=== PATIENT | male | born 2000 | race Caucasian/White ===

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

== ENCOUNTER 2021-01-19 12:11 | Emergency (ER) | payer OTHER, MEDICAID ==
[2021-01-19 12:25] VITALS: BP 114/57
[2021-01-19 12:39] LABS: RAPID STREP SCREEN Negative (Negative)
--- NOTE | 2021-01-19 12:39 | ED Physician Documentation ---
PD HPI HEENT - Stated complaint Stated Complaint: SORE THROAT - Chief complaint Chief Complaint: Heent - History obtained from History obtained from: Patient - History of Present Illness Timing - onset: How many days ago (3) Timing - duration: Days (3) Timing - details: Gradual onset, Still present Location: Sinuses, Throat Worsens: [place], Position (frontal sinus pressure with head down and changing position) Associated symptoms: Congestion, Headache (frontal and behind eyes). No: Fever, Facial swelling, Cough Similar symptoms before: Has not had sx before Recently seen: Not recently seen Review of Systems Constitutional: denies: Fever, Chills, Myalgias Ears: denies: Ear pain, Drainage/discharge Nose: reports: Rhinorrhea / runny nose, Congestion, Sinus pressure / pain Throat: reports: Sore throat Cardiac: denies: Chest pain / pressure Respiratory: denies: Dyspnea, Cough GI: denies: Nausea, Vomiting Neurologic: denies: Headache (just frontal sinus area) PD PAST MEDICAL HISTORY - Past Medical History Cardiovascular: None Respiratory: None Neuro: None Endocrine/Autoimmune: None - Present Medications Home Medications: Ambulatory Orders Medication Instructions Recorded Confirmed Amoxicillin 500 mg PO TID 6 Days #18 cap 01/19/21 Cetirizine [ZyrTEC] 10 mg PO BID #15 tablet 01/19/21 dexAMETHasone [Decadron] 4 mg PO DAILY #5 tablet 01/19/21 - Allergies Allergies/Adverse Reactions: Allergies Allergy/AdvReac Type Severity Reaction Status Date / Time No Known Drug Allergies Allergy Verified 01/19/21 12:22 - Social History Does the pt smoke?: No Smoking Status: Never smoker PD ED PE NORMAL - Vitals Vital signs reviewed: Yes - General General: Alert and oriented X 3, No acute distress, Well developed/nourished - HEENT HEENT: Ears normal, Moist mucous membranes, Pharynx benign - Neck Neck: Supple, no meningeal sign, No adenopathy - Cardiac Cardiac: RRR, No murmur - Respiratory Respiratory: Clear bilaterally - Derm Derm: Normal color, Warm and dry, No rash Results - Vitals Vitals: Oxygen O2 Source Room air - Labs Labs: Microbiology 01/19/21 12:25 Group A Strep Throat Culture - Final Throat MIXED OROPHARYNGEAL RENE PRESENT. NO BETA STREP PRESENT IN CULTURE. Laboratory Tests 01/19/21 01/19/21 12:25 13:10 Coronavirus (PCR) NEGATIVE Group A Strep Rapid Negative PD MEDICAL DECISION MAKING - ED course Complexity details: considered differential (consider URI but really sounds localized to sinus inflammation and drainage c/w sinusitis. ), d/w patient Departure - Departure Disposition: 01 Home, Self Care Clinical Impression: Sinusitis, acute Qualifiers: Sinusitis location: unspecified location Recurrence: non-recurrent Qualified Code(s): J01.90 - Acute sinusitis, unspecified Condition: Stable Record reviewed to determine appropriate education?: Yes Instructions: ED Sinusitis Abx Tx Prescriptions: Amoxicillin 500 mg PO TID 6 Days #18 cap dexAMETHasone [Decadron] 4 mg PO DAILY #5 tablet Cetirizine [ZyrTEC] 10 mg PO BID #15 tablet Comments: Your strep test is negative. The Covid test should result likely tomorrow. You can find the results on the patient portal. Your symptoms sound more like a sinus infection rather than a head cold per se. We will treated as such with antihistamines, steroid anti-inflammatory and antibiotic. I would anticipate improvement over the next few days. Tylenol or ibuprofen if needed for pains. You could use some saline nasal spray periodically to help clear the nasal passages well. You have a Covid test pending. You need to self quarantine until the result is done and negative. Do not leave your house. Do not get near anybody. The results should be done in 48 to 72 hours, but sometimes longer. We will call with a positive result, the fastest way to get a negative result for confirmation though is to go to the hospital website at [email or web address], click on the my [facility] tab and sign up for the patient portal. If any friends or family get sick and would like to have a Covid test done, but do not have signs or symptoms that would necessitate being hospitalized, we encourage testing through our coronavirus swabbing station, call [phone] to schedule an appointment. Discharge Date/Time: 01/19/21 13:26
[2021-01-19] MEDS ORDERED: CETIRIZINE 10 MG TABLET PO STA (13:02)
[2021-01-19] MEDS ORDERED: DEXAMETHASONE 10 MG/ML VIAL PO STA (13:02)
[2021-01-19] MEDS ORDERED: CHERRY SYRUP 10 ML UDC PO ONE (13:02)
[2021-01-19] MEDS ORDERED: AMOXICILLIN 250 MG CAPSULE PO STA (13:02)
== END 2021-01-19 13:26 | disposition home or self-care (01) ==
LOC: ED 12:11
DX: J01.90 Acute sinusitis, unspecified (principal); Z20.822 Contact with and (suspected) exposure to COVID-19
CPT/HCPCS: 87070; 87430; 87635; 99283; A9270

== ENCOUNTER 2021-12-22 17:47 | Outpatient (CLI) | payer OTHER, MEDICAID ==
--- NOTE | 2021-12-23 16:05 | XRAY Report ---
PROCEDURE: Finger(s) RT INDICATIONS: RIGHT MIDDLE FINGER INJ TECHNIQUE: AP hand, 3 views of the third finger(s) acquired. COMPARISON: X-ray wrist 12/20/2019 FINDINGS: Bones: No fractures or dislocations. No suspicious bony lesions. Soft tissues: No suspicious soft tissue calcifications. IMPRESSION: No visualized acute fracture or dislocation. However, occult injury cannot be excluded. Recommend eliana rt interval imaging follow-up in 7-10 days as clinically indicated for additional evaluation. Reviewed by: Anne Mensah MD on 12/23/2021 4:04 PM PDT Approved by: Anne Mensah MD on 12/23/2021 4:04 PM PDT Station ID: [id number]
== END 2021-12-22 23:59 | disposition home or self-care (01) ==
LOC: DI.N 17:47
PROVIDERS: ATTEND Nurse Practitioner
DX: S67.192A Crushing injury of right middle finger, initial encounter (principal)

== ENCOUNTER 2022-06-13 12:04 | Emergency (ER) | payer OTHER, MEDICAID ==
[2022-06-13 12:35] LABS: BASOPHILS % (AUTO) 0.3 %; EOSINOPHILS % (AUTO) 0.2 %; HGB - HEMOGLOBIN 16.1 g/dL (14.0-18.0); LYMPHOCYTES # (AUTO) 1.3 10^3/uL (1.5-3.5); LYMPHOCYTES % (AUTO) 20.1 %; MEAN CORPUSCULAR HEMOGLOBIN 31.9 pg (27.0-31.0); MEAN CORPUSCULAR VOLUME 91.1 fL (80.0-94.0); MEAN PLATELET VOLUME 9.8 fL (7.4-11.4); MONOCYTES # (AUTO) 0.7 10^3/uL (0.0-1.0); MONOCYTES % (AUTO) 10.1 %; NEUTROPHILS # (AUTO) 4.4 10^3/uL (1.5-6.6); NEUTROPHILS % (AUTO) 69.1 %; PLT - PLATELET COUNT 315 10^3/uL (130-450); RED BLOOD COUNT 5.05 10^6/uL (4.70-6.10); RED CELL DISTRIBUTION WIDTH 11.1 % (12.0-15.0); WHITE BLOOD COUNT 6.4 x10^3/uL (4.8-10.8)
[2022-06-13 12:49] LABS: ALBUMIN 4.9 g/dL (3.2-5.5); ALBUMIN/GLOBULIN RATIO 1.3 (1.0-2.2); BILIRUBIN,TOTAL 1.3 mg/dL (0.2-1.0); CALCIUM 10.1 mg/dL (8.5-10.3); CREATININE 1.1 mg/dL (0.6-1.2); TOTAL PROTEIN 8.7 g/dL (6.7-8.2)
--- NOTE | 2022-06-13 15:08 | ED Physician Documentation ---
PD HPI NVD - Stated complaint Stated Complaint: CHILLS/VOMITING - Chief complaint Chief Complaint: Abd Pain - History obtained from History obtained from: Patient - History of Present Illness Timing - onset: Yesterday Timing - duration: Days (2) Timing - details: Abrupt onset, Still present Associated symptoms: Fever (subjective), Abdominal pain (cramping mid to diffuse.), Loss of appetite, Other (multiple episodes of vomiting to point of dry heaving. having abd cramping develop after.). No: Near syncope / syncope Contributing factors: No: Sick contact, Bad food, Recent antibiotics Improved by: No: Vomiting Worsened by: Eating Similar symptoms before: Has not had sx before Recently seen: Not recently seen Review of Systems Constitutional: reports: Chills, Myalgias Nose: denies: Rhinorrhea / runny nose, Congestion Throat: denies: Sore throat Cardiac: denies: Chest pain / pressure Respiratory: reports: Cough. denies: Dyspnea GI: reports: Abdominal Pain, Nausea, Vomiting. denies: Abdominal Swelling, Diarrhea : denies: Dysuria, Frequency Skin: denies: Rash, Lesions Neurologic: denies: Altered mental status, Headache PD PAST MEDICAL HISTORY - Past Medical History Cardiovascular: None Respiratory: None Neuro: None Endocrine/Autoimmune: None - Present Medications Home Medications: Ambulatory Orders Medication Instructions Recorded Confirmed Amoxicillin 500 mg PO TID 6 Days #18 cap 01/19/21 Cetirizine [ZyrTEC] 10 mg PO BID #15 tablet 01/19/21 dexAMETHasone [Decadron] 4 mg PO DAILY #5 tablet 01/19/21 Ondansetron Odt [Zofran] 4 mg TL Q6H PRN #10 tablet 06/13/22 Promethazine [Phenergan] 25 mg PO Q6H PRN #10 tab 06/13/22 - Allergies Allergies/Adverse Reactions: Allergies Allergy/AdvReac Type Severity Reaction Status Date / Time No Known Drug Allergies Allergy Verified 06/13/22 12:20 - Social History Does the pt smoke?: No Smoking Status: Never smoker PD ED PE NORMAL - Vitals Vital signs reviewed: Yes - General General: Alert and oriented X 3, No acute distress (seems uncomfortable due to nausea currently, but not in pain right now. ), Well developed/nourished - HEENT HEENT: Ears normal, Pharynx benign. No: Moist mucous membranes - Neck Neck: Supple, no meningeal sign, No adenopathy - Cardiac Cardiac: RRR, No murmur - Respiratory Respiratory: Clear bilaterally - Abdomen Abdomen: Normal bowel sounds, Soft, Non distended, No organomegaly, Other (tender mildly diffusely without focal guarding, nor percussion/rebound tenderness. no rash nor sores. umbilical area without hernias. ) Results - Vitals Vitals: Vital Signs - 24 hr 06/13/22 06/13/22 12:17 17:42 Temperature 37.2 C Heart Rate 73 66 Respiratory 18 18 Rate Blood Pressure 131/77 H 110/75 O2 Saturation 100 99 Oxygen O2 Source Room air - Labs Labs: Laboratory Tests 06/13/22 06/13/22 06/13/22 12:30 12:30 14:48 WBC 6.4 RBC 5.05 Hgb 16.1 Hct 46.0 MCV 91.1 MCH 31.9 H MCHC 35.0 RDW 11.1 L Plt Count 315 MPV 9.8 Neut # (Auto) 4.4 Lymph # (Auto) 1.3 L [place] # (Auto) 0.7 Eos # (Auto) 0.0 Baso # (Auto) 0.0 Absolute Nucleated RBC 0.00 Nucleated RBC % 0.0 Sodium 140 Potassium 4.0 Chloride 102 Carbon Dioxide 24 Anion Gap 14.0 H BUN 17 Creatinine 1.1 Estimated GFR (MDRD) 85 L Glucose 110 H Calcium 10.1 Total Bilirubin 1.3 H AST 19 ALT 14 Alkaline Phosphatase 69 Total Protein 8.7 H Albumin 4.9 Globulin 3.8 Albumin/Globulin Ratio 1.3 Lipase 25 Influenza A (Rapid) Negative Influenza B (Rapid) Negative PD MEDICAL DECISION MAKING - ED course Complexity details: re-evaluated patient (feeling greatly better with iv fluids and meds. Recheck abd not tender. he is able to take po liquids now. ), considered differential (not particular focal tenderness on abd exam. has had multiple vomiting since yesterday. no diarrhea though. still seems likely viral ge. no suspect foods, per patient. ), d/w patient Departure - Departure Disposition: 01 Home, Self Care Clinical Impression: Dehydration, Gastroenteritis Nausea and vomiting Qualifiers: Vomiting type: unspecified Qualified Code(s): R11.2 - Nausea with vomiting, unspecified Condition: Stable Record reviewed to determine appropriate education?: Yes Instructions: ED Nausea Vomiting Prescriptions: Promethazine [Phenergan] 25 mg PO Q6H PRN #10 tab PRN Reason: Nausea / Vomiting Ondansetron Odt [Zofran] 4 mg TL Q6H PRN #10 tablet PRN Reason: Nausea / Vomiting Comments: This sounds likely to be a viral type illness with the nausea and vomiting and cramps. I have a low suspicion for more localized infection such as appendix or so. He did seem dehydrated. It is good that you are feeling better with a few fluids and some of the medicines. Hopefully we can maintain that now with some antinausea medications and maintaining hydration and use of Tylenol or ibuprofen type medicines. Ondansetron or promethazine every 6 hours if needed for nausea. Small frequent fluids. I would anticipate him continued symptoms for another couple of days likely. However hopefully not as much as you have had last 2 days. I sent your prescriptions to [facility] pharmacy for antinausea medicines. Recheck if not improved well over the next several days and resolved by 3 to 4 days. Return if worse. Discharge Date/Time: 06/13/22 17:44
[2022-06-13] MEDS ORDERED: KETOROLAC 15 MG/ML VIAL IVP STA (15:31)
[2022-06-13] MEDS ORDERED: DROPERIDOL 5 MG/2 ML VIAL IVP STA (15:31)
[2022-06-13] MEDS ORDERED: SODIUM CHLORIDE 0.9% 1,000 ML IV STA ×2 (15:31)
[2022-06-13] MEDS ORDERED: FAMOTIDINE 20 MG/2 ML VIAL IVP STA (15:31)
[2022-06-13 17:43] VITALS: BP 110/75
== END 2022-06-13 17:44 | disposition home or self-care (01) ==
LOC: ED 12:04
DX: K52.9 Noninfective gastroenteritis and colitis, unspecified (principal); E86.0 Dehydration
CPT/HCPCS: 36415; 80053; 83690; 85025; 87275; 87276; 96361; 96374; 96375; 99284

== ENCOUNTER 2022-08-26 13:31 | Emergency (ER) | payer OTHER, MEDICAID ==
[2022-08-26] MEDS ORDERED: KETOROLAC 15 MG/ML VIAL IVP STA (13:51)
[2022-08-26] MEDS ORDERED: PROMETHAZINE INJ 25 MG in SODIUM CHLORIDE 0.9% 50 ML IV STA (13:51)
[2022-08-26] MEDS ORDERED: SODIUM CHLORIDE 0.9% 1,000 ML IV STA (13:51)
[2022-08-26] MEDS ORDERED: LOPERAMIDE 2 MG CAPSULE PO STA (13:51)
--- NOTE | 2022-08-26 13:52 | ED Physician Documentation ---
PD HPI NVD - Stated complaint Stated Complaint: NAUSEA/VOMITING - Chief complaint Chief Complaint: Abd Pain - History obtained from History obtained from: Patient - Additonal information Additional information: Otherwise healthy 22-year-old gentleman who does smoke cannabis frequently but he says not daily presents with vomiting starting yesterday. He started vomiting and then developed epigastric pain later. It is associate with diarrhea. No fevers or sick contacts. He took an ondansetron yesterday which was helpful. PD PAST MEDICAL HISTORY - Past Medical History Cardiovascular: None Respiratory: None Neuro: None Endocrine/Autoimmune: None - Present Medications Home Medications: Ambulatory Orders Medication Instructions Recorded Confirmed Ondansetron Odt [Zofran] 4 mg TL Q6H PRN #10 tablet 06/13/22 08/26/22 Loperamide [Imodium] 2 mg PO QID PRN #10 cap 08/26/22 Ondansetron Odt [Zofran] 4 mg TL Q6H PRN #10 tablet 08/26/22 Promethazine [Phenergan] 25 mg PO Q6H PRN #10 tab 08/26/22 - Allergies Allergies/Adverse Reactions: Allergies Allergy/AdvReac Type Severity Reaction Status Date / Time No Known Drug Allergies Allergy Verified 08/26/22 13:43 - Social History Does the pt smoke?: No Smoking Status: Never smoker Does the pt drink ETOH?: Yes Does the pt have substance abuse?: No - Immunizations Immunizations are current?: Yes - POLST Patient has POLST: No PD ED PE NORMAL - Vitals Vital signs reviewed: Yes - General General: Alert and oriented X 3, No acute distress - Cardiac Cardiac: RRR, No murmur - Respiratory Respiratory: No respiratory distress, Clear bilaterally - Abdomen Abdomen: Normal bowel sounds, Soft, Non tender - Neuro Neuro: Alert and oriented X 3, Normal speech Results - Vitals Vitals: Vital Signs - 24 hr 08/26/22 13:41 Temperature 37 C Heart Rate 57 L Respiratory 16 Rate Blood Pressure 131/72 H O2 Saturation 99 Oxygen O2 Source Room air - Labs Labs: Laboratory Tests 08/26/22 13:58 Sodium 137 Potassium 3.7 Chloride 101 Carbon Dioxide 21 Anion Gap 15.0 H BUN 17 Creatinine 1.1 Estimated GFR (MDRD) 85 L Glucose 124 H Calcium 9.9 Total Bilirubin 1.7 H AST 19 ALT 14 Alkaline Phosphatase 67 Total Protein 8.9 H Albumin 5.3 Globulin 3.6 Albumin/Globulin Ratio 1.5 Lipase 27 PD Medical Decision Making - ED course ED course: 22-year-old gentleman with history and physical consistent with gastroenteritis. No tenderness. After the administration of IV fluids, Phenergan, and Toradol he was feeling much better. Passed a p.o. challenge here. On reexamination at 1521 he was nontender and pain-free. CMP reviewed with mild hyperglycemia, mild increase in anion gap and mild elevation of bilirubin. The bilirubin elevation is chronic. Advised to return in 24 hours if not better, anytime for new or worsening symptoms. Departure - Departure Disposition: 01 Home, Self Care Clinical Impression: Gastroenteritis Condition: Good Instructions: ED Gastroenteritis Viral Prescriptions: Loperamide [Imodium] 2 mg PO QID PRN #10 cap PRN Reason: Diarrhea Promethazine [Phenergan] 25 mg PO Q6H PRN #10 tab PRN Reason: Nausea / Vomiting Ondansetron Odt [Zofran] 4 mg TL Q6H PRN #10 tablet PRN Reason: Nausea / Vomiting Comments: Return if not better this time tomorrow, sooner for new or worsening symptoms including increased pain or fever.
[2022-08-26 14:16] LABS: ALBUMIN 5.3 g/dL (3.2-5.5); ALBUMIN/GLOBULIN RATIO 1.5 (1.0-2.2); BILIRUBIN,TOTAL 1.7 mg/dL (0.2-1.0); CALCIUM 9.9 mg/dL (8.5-10.3); CREATININE 1.1 mg/dL (0.6-1.2); POTASSIUM 3.7 mmol/L (3.5-5.0); TOTAL PROTEIN 8.9 g/dL (6.7-8.2)
[2022-08-26 15:32] VITALS: BP 121/83
== END 2022-08-26 15:31 | disposition home or self-care (01) ==
LOC: ED 13:31
DX: K52.9 Noninfective gastroenteritis and colitis, unspecified (principal)
CPT/HCPCS: 36415; 80053; 83690; 96365; 96375; 99284; J7040

== ENCOUNTER 2022-08-27 19:27 | Emergency (ER) | payer OTHER, MEDICAID ==
[2022-08-27] MEDS ORDERED: SODIUM CHLORIDE 0.9% 1,000 ML IV STA (19:48)
--- NOTE | 2022-08-27 19:50 | ED Physician Documentation ---
PD HPI SYNCOPE - Stated complaint Stated Complaint: GAGGING - Chief complaint Chief Complaint: Neuro - History obtained from History obtained from: Patient - Additional information Additional information: 22-year-old seen last night for presumed gastroenteritis. He is feeling better today from a stomach standpoint but still has abdominal pain and nausea. He was eating saltine crackers and then started gagging on them and after a short time of gagging passed out without injury. Feels back to normal from that perspective. No associated chest pain or trouble breathing. Still has the abdominal pain and nausea and diarrhea from last night but declines further medication for that. Review of Systems Constitutional: denies: Fever, Chills PD PAST MEDICAL HISTORY - Past Medical History Cardiovascular: None Respiratory: None Neuro: None Endocrine/Autoimmune: None - Present Medications Home Medications: Ambulatory Orders Medication Instructions Recorded Confirmed Ondansetron Odt [Zofran] 4 mg TL Q6H PRN #10 tablet 06/13/22 08/26/22 Loperamide [Imodium] 2 mg PO QID PRN #10 cap 08/26/22 Ondansetron Odt [Zofran] 4 mg TL Q6H PRN #10 tablet 08/26/22 Promethazine [Phenergan] 25 mg PO Q6H PRN #10 tab 08/26/22 - Allergies Allergies/Adverse Reactions: Allergies Allergy/AdvReac Type Severity Reaction Status Date / Time No Known Drug Allergies Allergy Verified 08/27/22 19:38 - Social History Does the pt smoke?: No Smoking Status: Never smoker Does the pt drink ETOH?: Yes Does the pt have substance abuse?: No - Immunizations Immunizations are current?: Yes - POLST Patient has POLST: No PD ED PE NORMAL - Vitals Vital signs reviewed: Yes - General General: Alert and oriented X 3, No acute distress - Neck Neck: Supple, no meningeal sign, No bony TTP - Cardiac Cardiac: RRR, No murmur - Respiratory Respiratory: No respiratory distress, Clear bilaterally - Abdomen Abdomen: Soft, Other (Mild left lower quadrant TTP without surgical signs. No right lower quadrant tenderness. Hyperactive bowel sounds.) - Extremities Extremities: No edema, No calf tenderness / cord - Neuro Neuro: Alert and oriented X 3, Normal speech Eye Opening: Spontaneous Motor: Obeys Commands Verbal: Oriented GCS Score: 15 Results - Vitals Vitals: Vital Signs - 24 hr 08/27/22 19:33 Temperature 37 C Heart Rate 67 Respiratory 16 Rate Blood Pressure 147/74 H O2 Saturation 100 Oxygen O2 Source Room air - EKG (time done) 1950 Rate: Rate (enter#) (56) Rhythm: NSR [place]: Normal Intervals: Normal [place] QRS: Normal Ischemia: Normal ST segments - Labs Labs: Laboratory Tests 08/27/22 08/27/22 20:01 20:01 WBC 4.6 L RBC 4.73 Hgb 15.0 Hct 43.7 MCV 92.4 MCH 31.7 H MCHC 34.3 RDW 11.0 L Plt Count 230 MPV 10.5 Neut # (Auto) 2.3 Lymph # (Auto) 1.7 [place] # (Auto) 0.6 Eos # (Auto) 0.0 Baso # (Auto) 0.0 Absolute Nucleated RBC 0.00 Nucleated RBC % 0.0 Sodium 138 Potassium 4.1 Chloride 103 Carbon Dioxide 21 Anion Gap 14.0 H BUN 14 Creatinine 1.0 Estimated GFR (MDRD) 94 Glucose 95 Calcium 9.3 Total Bilirubin 0.9 AST 19 ALT 13 Alkaline Phosphatase 64 Total Protein 8.3 H Albumin 5.0 Globulin 3.3 Albumin/Globulin Ratio 1.5 - Rads (name of study) CT of the abdomen pelvis is unremarkable. Appendix not seen but no other signs of appendicitis. Radiology: Final report received, EMP read indepedently PD Medical Decision Making - ED course ED course: 22-year-old gentleman who was seen yesterday for a vomiting illness consistent with gastroenteritis with diarrhea. Today he was feeling somewhat better but had a gagging episode and then passed out. EKG done and unremarkable. CBC done and unremarkable. CMP done and unremarkable. CT unremarkable. Presume the syncopal episode was related to increased intrathoracic pressure associate with mild dehydration while gagging. Departure - Departure Disposition: 01 Home, Self Care Clinical Impression: Gastroenteritis Syncope Qualifiers: Syncope type: unspecified Qualified Code(s): R55 - Syncope and collapse Condition: Good Record reviewed to determine appropriate education?: Yes Instructions: ED Gastroenteritis Viral, ED Syncope Vasovagal Comments: You were seen today for an episode of passing out while gagging with resolving stomach symptoms. Return in 24 hours if not better, anytime for new or worsening symptoms. Follow-up with your primary care physician regardless.
[2022-08-27] MEDS ORDERED: iohexoL-300 100 ML VIAL ONE (19:56)
[2022-08-27 20:06] LABS: BASOPHILS % (AUTO) 0.4 %; EOSINOPHILS % (AUTO) 0.4 %; HCT - HEMATOCRIT 43.7 % (42.0-52.0); LYMPHOCYTES # (AUTO) 1.7 10^3/uL (1.5-3.5); LYMPHOCYTES % (AUTO) 37.8 %; MEAN CORPUSCULAR HEMOGLOBIN 31.7 pg (27.0-31.0); MEAN CORPUSCULAR HGB CONC 34.3 g/dL (32.0-36.0); MEAN CORPUSCULAR VOLUME 92.4 fL (80.0-94.0); MEAN PLATELET VOLUME 10.5 fL (7.4-11.4); MONOCYTES # (AUTO) 0.6 10^3/uL (0.0-1.0); NEUTROPHILS # (AUTO) 2.3 10^3/uL (1.5-6.6); NEUTROPHILS % (AUTO) 49.2 %; PLT - PLATELET COUNT 230 10^3/uL (130-450); RED BLOOD COUNT 4.73 10^6/uL (4.70-6.10); WHITE BLOOD COUNT 4.6 x10^3/uL (4.8-10.8)
[2022-08-27 20:21] LABS: ALBUMIN/GLOBULIN RATIO 1.5 (1.0-2.2); BILIRUBIN,TOTAL 0.9 mg/dL (0.2-1.0); CALCIUM 9.3 mg/dL (8.5-10.3); POTASSIUM 4.1 mmol/L (3.5-5.0); TOTAL PROTEIN 8.3 g/dL (6.7-8.2)
[2022-08-27] MEDS ORDERED: iohexoL-300 100 ML VIAL IVP ONE (20:28)
--- NOTE | 2022-08-27 20:53 | CT Report ---
PROCEDURE: ABDOMEN/PELVIS W INDICATIONS: IV only, abd pain, no need to wait 4 labs CONTRAST: 100 ml omni 300 TECHNIQUE: After the administration of nonionic contrast, 5 mm thick sections acquired from the diaphragms to th e symphysis. 5 mm thick coronal and sagittal reformats were acquired. For radiation dose reduction, the following was used: automated exposure control, adjustment of mA and/or kV according to patient size. COMPARISON: None. FINDINGS: Image quality: Excellent. ABDOMEN: Lung bases: Lung bases are clear. Heart size is normal. Solid organs: Liver and spleen are normal in size and enhancement. Gallbladder appears normal Bili gianni system is non dilated. Pancreas enhances normally. No adrenal nodules. Kidneys demonstrate nor mal size and enhancement, without hydronephrosis. Peritoneum and bowel: Bowel loops demonstrate normal wall thickness and caliber. No free fluid or a ir. Nodes and vessels: No retroperitoneal or mesenteric adenopathy by size criteria. Aorta and inferior vena cava are normal in size. Miscellaneous: No ventral hernias. PELVIS: Genitourinary: Bladder wall thickness is normal. Miscellaneous: No inguinal hernias or adenopathy. A normal or abnormal appendix could not be located . Bones: No suspicious bony lesions. No vertebral body compression fractures. IMPRESSION: Source of current symptoms is not seen. A normal or abnormal appendix could not be locat ed but there are no secondary CT findings that would indicate presence of bowel inflammation in the r ight lower quadrant. Reviewed by: Terrance Manzanares MD on 08/27/2022 8:51 PM PST Approved by: Terrance Manzanares MD on 08/27/2022 8:51 PM PST Station ID: [id number]
[2022-08-27 21:08] VITALS: BP 143/53
== END 2022-08-27 21:08 | disposition home or self-care (01) ==
LOC: ED 19:27
DX: K52.9 Noninfective gastroenteritis and colitis, unspecified (principal); R55 Syncope and collapse
CPT/HCPCS: 36415; 80053; 85025; 93005; 99283; 99284